=== PATIENT | male | born 1950 | race African-American/Black ===

== ENCOUNTER 2016-10-11 20:06 | Inpatient (IN) | payer OTHER ==
[~2016-10-11] VITALS: Ht 182.9 cm; Wt 60.8 kg
[2016-10-11 20:06] VITALS: BP_SYST 118
[~2016-10-11 20:06] MED LIST: ACET325T53 PO; ACYC400T PO; AZIT250T PO; FAMO20TA8 PO; FINA5TAB3 PO; FOLI-43 PO; INSU100V26 SUBCUT; INSU100V9 SUBCUT; IPRA4AER INH; METO-290 PO; METO25TA3 PO; MYCO180T3 PO; PRED10TA PO; PSYL3.4P6 PO; SULF1TAB48 PO; TACR0.5C PO; TACR1CAP PO; TAMS-11 PO; TIOT18CA3 IH; VANC125C10 PO; VITD2000 PO
[2016-10-11 21:14] LABS: HEMOGLOBIN 13.4 g/dL (14.0-18.0); MEAN CORPUSCULAR HGB CONC 33 % (32-36)
[2016-10-11] MEDS ORDERED: ACLI400A2 IH (21:15)
[2016-10-11] MEDS ORDERED: MORPHINE 2 MG/ML INJ. SYRINGE IVP ONE (21:15)
[2016-10-11] MEDS ORDERED: IPRATROPIUM/ALBUTEROL SULFATE 3 ML AMPUL.NEB INH ONE (21:15)
[2016-10-11] MEDS ORDERED: METR500T PO (21:16)
[2016-10-11] MEDS ORDERED: TAMS-11 PO (21:18)
[2016-10-11] MEDS ORDERED: INSU100V11 SQ (21:20)
[2016-10-11] MEDS ORDERED: IPRA3AMP9 INH ×2 (21:22→21:23)
[2016-10-11 21:24] LABS: BASOPHILS # (AUTO) 0.3 K/uL (0.0-0.2); BASOPHILS % (AUTO) 2.8 % (0.0-2.0); HEMATOCRIT 40.9 % (36-54); LYMPHOCYTES # (AUTO) 0.3 K/uL (1.0-5.5); LYMPHOCYTES % (AUTO) 2.7 % (20.5-51.5); MEAN CORPUSCULAR HEMOGLOBIN 31 pg (27-31); MEAN CORPUSCULAR VOLUME 96 fL (79.0-98.0); MONOCYTES # (AUTO) 0.3 K/uL (0.0-1.0); MONOCYTES % (AUTO) 2.7 % (1.7-9.3); NEUTROPHILS # (AUTO) 8.8 K/uL (1.8-7.7); NEUTROPHILS % (AUTO) 91.8 % (40.0-70.0); RED BLOOD CELL COUNT(AUTO) 4.29 MIL/uL (4.2-6.2); WHITE BLOOD COUNT (AUTO) 9.7 K/uL (4.8-10.8)
[2016-10-11] MEDS ORDERED: MAG-55 PO (21:25)
[2016-10-11] MEDS ORDERED: PRED50TA PO (21:26)
[2016-10-11] MEDS ORDERED: TRAM50TA92 PO (21:28)
[2016-10-11 21:29] LABS: CALCIUM 8.8 mg/dL (8.4-11.0); CHLORIDE 104 mmol/L (98-107); CREATININE 1.84 mg/dL (0.55-1.30); GLUCOSE 205 mg/dL (70-99); POTASSIUM 5.6 mmol/L (3.5-5.1); SODIUM SERUM 136 mmol/L (136-145); UREA NITROGEN, BLOOD 61 mg/dL (8-21)
[2016-10-11 21:34] LABS: ANION GAP < 3 (5-15); GFR AFRICAN AMERICAN 48 mL/min (>90)
[2016-10-11] MEDS ORDERED: INSULIN REGULAR, HUMAN 10 UNITS/0.1 ML INJ IVP ONE (21:45)
[2016-10-11] MEDS ORDERED: NACL 0.9% 1,000 ML IV ONE (21:45)
[2016-10-11] MEDS ORDERED: SODIUM POLYSTYRENE SULFONATE 15 GM/60 ML UDBTL PO ONE (21:45)
[2016-10-11] MEDS ORDERED: DEXTROSE 50% JECT 50 ML DISP.SYRIN IVP ONE (21:45)
[2016-10-11 21:53] LABS: BILIRUBIN,URINE NEGATIVE (NEGATIVE); CLARITY/URINE SL HAZY (CLEAR); COLOR,URINE AMBER (YELLOW); GLUCOSE,URINE NEGATIVE (NEGATIVE); KETONES,URINE NEGATIVE (NEGATIVE); LEUKOCYTE ESTERASE ,URINE TRACE (NEGATIVE); NITRITE, URINE NEGATIVE (NEGATIVE); PROTEIN URINE 1+ (NEGATIVE); UROBILINOGEN,URINE 0.2 (0.2-1.0)
[2016-10-11 21:53] LABS: ALANINE AMINOTRANSFERASE 56 U/L (12-78); ALBUMIN 2.4 g/dL (3.4-4.8); AMYLASE 55 U/L (0-100); ASPARTATE AMINOTRANSFERASE 36 U/L (10-37); LIPASE 57 U/L (73-393); TOTAL BILIRUBIN 0.6 mg/dL (0.0-1.0); TOTAL PROTEIN, SERUM 6.1 g/dL (6.4-8.3)
[2016-10-11 22:06] LABS: BLOOD, URINE TRACE (NEGATIVE)
[2016-10-11 22:17] LABS: RBC,URINE 0-3 /HPF (0-3)
[2016-10-11 22:18] LABS: BACTERIA,URINE FEW /HPF (None Seen)
[2016-10-11 22:19] LABS: MUCUS,URINE 1+ /LPF (None Seen)
[2016-10-11 22:20] LABS: FINE GRANULAR CASTS,URINE 0-10 /LPF (None Seen)
[2016-10-11] MEDS ORDERED: PIPERACILLIN/TAZO 3.375 GM in NS 50 ML IV ONE (22:30)
[2016-10-11] MEDS ORDERED: VANCOMYCIN HCL 1,000 MG in NS 250 ML IV ONE (22:30)
[2016-10-11 22:40] LABS: PLATELET COUNT (AUTO) 91 K/uL (130-430)
[2016-10-11] MEDS ORDERED: VANCOMYCIN HCL 1000 MG/VIAL IV ONE (22:48)
[2016-10-11] MEDS ORDERED: PIPERACILLIN/TAZOBACTAM 3.375 GM/VIAL (ZOSYN) IV ONE (22:48)
[2016-10-12] VITALS (7 sets, daily range): BP systolic 145–153
[2016-10-12 00:20] LABS: INR 1.1 (0.80-1.20); PROTHROMBIN TIME 12.1 SECS (9.5-12.5)
[2016-10-12] MEDS ORDERED: NACL 0.9% 1,000 ML IV ONE (01:30)
[2016-10-12] MEDS ORDERED: ACETAMINOPHEN 325 MG TABLET PO PRN (01:45)
[2016-10-12] MEDS ORDERED: D5/0.45 NS 1,000 ML IV SCH (01:45)
[2016-10-12] MEDS ORDERED: PIPERACILLIN/TAZOBACTAM 2.25 GM VIAL IV ONE (05:30)
[2016-10-12] MEDS: PIPERACILLIN/TAZOBACTAM 2.25 GM in NS 50 ML IV SCH ×4 (05:51→23:53)
[2016-10-12 06:36] LABS: HEMATOCRIT 40.3 % (36-54); HEMOGLOBIN 13.4 g/dL (14.0-18.0); MEAN CORPUSCULAR HEMOGLOBIN 32 pg (27-31); MEAN CORPUSCULAR HGB CONC 33 % (32-36); MEAN CORPUSCULAR VOLUME 97 fL (79.0-98.0); PLATELET COUNT (AUTO) 85 K/uL (130-430); RED BLOOD CELL COUNT(AUTO) 4.14 MIL/uL (4.2-6.2); RED CELL DISTRIBUTION WIDTH 16.9 % (9.0-15.0); WHITE BLOOD COUNT (AUTO) 8.8 K/uL (4.8-10.8)
[2016-10-12 07:02] LABS: ALBUMIN 2.3 g/dL (3.4-4.8); CALCIUM 8.2 mg/dL (8.4-11.0); CREATININE 1.62 mg/dL (0.55-1.30); POTASSIUM 5.2 mmol/L (3.5-5.1); TOTAL BILIRUBIN 0.6 mg/dL (0.0-1.0)
[2016-10-12] MEDS: LevALBUTEROL HCL 1.25 MG/0.5 ML *CONC.* VIAL.NEB (XOPENEX CONC.) INH SCH ×3 (07:13→19:47)
[2016-10-12 07:35] LABS: BAND % (MANUAL) 4 % (0-6)
[2016-10-12 07:36] LABS: ATYPICAL LYMPHOCYTES % 0 % (0-0); BASOPHILS % (MANUAL) 0 % (0-2); EOSINOPHILS % (MANUAL) 0 % (0-7); LYMPHOCYTES % (MANUAL) 9 % (20-46); MONOCYTES % (MANUAL) 5 % (0-11)
[2016-10-12] MEDS: metroNIDAZOLE 500 MG TABLET PO SCH ×3 (08:37→21:19)
[2016-10-12] MEDS: METOPROLOL SUCCINATE 25 MG TAB.SR.24H (TOPROL XL) PO SCH (08:37)
[2016-10-12] MEDS: TAMSULOSIN HCL 0.4 MG CAP PO SCH (08:38)
[2016-10-12] MEDS: TACROLIMUS ANHYDROUS 1 MG CAPSULE (PROGRAF) PO SCH (08:38)
[2016-10-12] MEDS: FINASTERIDE 5 MG TABLET (PROSCAR) PO SCH (08:38)
[2016-10-12] MEDS: FAMOTIDINE 20 MG TABLET PO SCH ×2 (08:38→21:19)
[2016-10-12] MEDS ORDERED: ACLIDINIUM BROMIDE IH SCH (09:00)
[2016-10-12] MEDS ORDERED: PREDNISONE 10 MG TABLET PO SCH (09:00)
[2016-10-12] MEDS: INSULIN REGULAR, HUMAN 100 UNITS/ML, 10 ML VIAL (novoLIN R) SUBCUT PRN ×3 (12:28→21:30)
[2016-10-12] MEDS ORDERED: FUROSEMIDE 20 MG/2 ML VIAL IVP ONE (13:30)
[2016-10-12 13:48] LABS: ABG TOTAL HEMOGLOBIN 14.4 G/dL (12.0-18.0); BLOOD GAS BASE EXCESS 3.2 mmol/L (-3.0-3.0); BLOOD GAS COHb% 0.7 % (0.5-1.5); BLOOD GAS HHB 3.1 % (0.0-6.0); BLOOD GAS PH 7.414 (7.350-7.450); BLOOD O2Hb% 95.6 % (94.0-97.0)
[2016-10-12] MEDS: methylPREDNISolone SOD SUCC/PF 62.5 MG/ML VIAL IVP SCH ×2 (14:38→21:20)
[2016-10-12] MEDS: FLUCONAZOLE 200 mg/ NS 100 ML IV SCH (14:39)
[2016-10-12] MEDS: IPRATROPIUM BROM 0.5 MG/2.5 ML VIAL.NEB (ATROVENT) INH SCH (19:47)
[2016-10-12] MEDS: TACROLIMUS ANHYDROUS 0.5 MG CAPSULE (PROGRAF) PO SCH (21:19)
[2016-10-12] MEDS: VANCOMYCIN HCL 1,250 MG in NS 250 ML IV SCH (21:25)
[2016-10-13 00:14] VITALS: BP_SYST 143
[2016-10-13] MEDS: LevALBUTEROL HCL 1.25 MG/0.5 ML *CONC.* VIAL.NEB (XOPENEX CONC.) INH SCH ×4 (01:28→19:38)
[2016-10-13] MEDS: IPRATROPIUM BROM 0.5 MG/2.5 ML VIAL.NEB (ATROVENT) INH SCH ×4 (01:28→19:38)
[2016-10-13 04:45] VITALS: BP_SYST 148
[2016-10-13] MEDS: methylPREDNISolone SOD SUCC/PF 62.5 MG/ML VIAL IVP SCH ×3 (05:49→22:50)
[2016-10-13] MEDS: PIPERACILLIN/TAZOBACTAM 2.25 GM in NS 50 ML IV SCH ×3 (05:49→17:52)
[2016-10-13 06:43] LABS: HEMOGLOBIN 12.9 g/dL (14.0-18.0); MEAN CORPUSCULAR HEMOGLOBIN 33 pg (27-31); MONOCYTES # (AUTO) 0.2 K/uL (0.0-1.0)
[2016-10-13 06:48] LABS: BASOPHILS % (AUTO) 0.1 % (0.0-2.0); HEMATOCRIT 37.9 % (36-54); LYMPHOCYTES # (AUTO) 0.1 K/uL (1.0-5.5); LYMPHOCYTES % (AUTO) 1.5 % (20.5-51.5); MEAN CORPUSCULAR HGB CONC 34 % (32-36); MEAN CORPUSCULAR VOLUME 96 fL (79.0-98.0); MONOCYTES % (AUTO) 1.8 % (1.7-9.3); NEUTROPHILS # (AUTO) 8.4 K/uL (1.8-7.7); NEUTROPHILS % (AUTO) 96.6 % (40.0-70.0); RED BLOOD CELL COUNT(AUTO) 3.97 MIL/uL (4.2-6.2); RED CELL DISTRIBUTION WIDTH 16.7 % (9.0-15.0); WHITE BLOOD COUNT (AUTO) 8.7 K/uL (4.8-10.8)
[2016-10-13 07:04] LABS: CALCIUM 8.3 mg/dL (8.4-11.0); CREATININE 1.69 mg/dL (0.55-1.30); POTASSIUM 5.2 mmol/L (3.5-5.1)
[2016-10-13 08:14] VITALS: BP_SYST 138
[2016-10-13] MEDS: TAMSULOSIN HCL 0.4 MG CAP PO SCH (08:52)
[2016-10-13] MEDS: FAMOTIDINE 20 MG TABLET PO SCH ×2 (08:52→20:22)
[2016-10-13] MEDS: metroNIDAZOLE 500 MG TABLET PO SCH ×3 (08:52→20:22)
[2016-10-13] MEDS: METOPROLOL SUCCINATE 25 MG TAB.SR.24H (TOPROL XL) PO SCH (08:53)
[2016-10-13] MEDS: FINASTERIDE 5 MG TABLET (PROSCAR) PO SCH (08:53)
[2016-10-13] MEDS: TACROLIMUS ANHYDROUS 1 MG CAPSULE (PROGRAF) PO SCH (08:53)
[2016-10-13 09:13] LABS: PLATELET COUNT (AUTO) 72 K/uL (130-430)
[2016-10-13] MEDS ORDERED: FUROSEMIDE 20 MG/2 ML VIAL IVP ONE (11:30)
[2016-10-13 12:00] VITALS: BP_SYST 127
[2016-10-13] MEDS: INSULIN REGULAR, HUMAN 100 UNITS/ML, 10 ML VIAL (novoLIN R) SUBCUT PRN ×3 (12:14→20:27)
[2016-10-13] MEDS: FLUCONAZOLE 200 mg/ NS 100 ML IV SCH (13:15)
[2016-10-13 16:00] VITALS: BP_SYST 136
[2016-10-13] MEDS: VANCOMYCIN HCL 1,250 MG in NS 250 ML IV SCH (20:22)
[2016-10-13] MEDS: TACROLIMUS ANHYDROUS 0.5 MG CAPSULE (PROGRAF) PO SCH (20:22)
[2016-10-13 20:28] VITALS: BP_SYST 135
[2016-10-14 00:04] VITALS: BP_SYST 133
[2016-10-14] MEDS: PIPERACILLIN/TAZOBACTAM 2.25 GM in NS 50 ML IV SCH ×4 (00:16→17:01)
[2016-10-14] MEDS: IPRATROPIUM BROM 0.5 MG/2.5 ML VIAL.NEB (ATROVENT) INH SCH ×4 (01:56→20:30)
[2016-10-14] MEDS: LevALBUTEROL HCL 1.25 MG/0.5 ML *CONC.* VIAL.NEB (XOPENEX CONC.) INH SCH ×4 (01:56→20:30)
[2016-10-14 04:12] VITALS: BP_SYST 125
[2016-10-14] MEDS: methylPREDNISolone SOD SUCC/PF 62.5 MG/ML VIAL IVP SCH ×3 (05:59→21:10)
[2016-10-14 07:41] LABS: BASOPHILS % (AUTO) 0.4 % (0.0-2.0); EOSINOPHILS % (AUTO) 0.1 % (0.0-4.0); HEMATOCRIT 40.4 % (36-54); HEMOGLOBIN 13.4 g/dL (14.0-18.0); LYMPHOCYTES # (AUTO) 0.2 K/uL (1.0-5.5); LYMPHOCYTES % (AUTO) 1.5 % (20.5-51.5); MEAN CORPUSCULAR HEMOGLOBIN 32 pg (27-31); MEAN CORPUSCULAR HGB CONC 33 % (32-36); MEAN CORPUSCULAR VOLUME 97 fL (79.0-98.0); MONOCYTES # (AUTO) 0.3 K/uL (0.0-1.0); MONOCYTES % (AUTO) 2.4 % (1.7-9.3); NEUTROPHILS % (AUTO) 95.6 % (40.0-70.0); PLATELET COUNT (AUTO) 60 K/uL (130-430); RED BLOOD CELL COUNT(AUTO) 4.17 MIL/uL (4.2-6.2); RED CELL DISTRIBUTION WIDTH 17.2 % (9.0-15.0); WHITE BLOOD COUNT (AUTO) 10.5 K/uL (4.8-10.8)
[2016-10-14 08:04] VITALS: BP_SYST 147
[2016-10-14 08:34] LABS: CALCIUM 8.1 mg/dL (8.4-11.0); CREATININE 1.93 mg/dL (0.55-1.30); POTASSIUM 4.5 mmol/L (3.5-5.1)
[2016-10-14] MEDS: METOPROLOL SUCCINATE 25 MG TAB.SR.24H (TOPROL XL) PO SCH (09:10)
[2016-10-14] MEDS: TAMSULOSIN HCL 0.4 MG CAP PO SCH (09:10)
[2016-10-14] MEDS: FINASTERIDE 5 MG TABLET (PROSCAR) PO SCH (09:10)
[2016-10-14] MEDS: FAMOTIDINE 20 MG TABLET PO SCH ×2 (09:11→21:10)
[2016-10-14] MEDS: metroNIDAZOLE 500 MG TABLET PO SCH ×3 (09:11→21:10)
[2016-10-14] MEDS: TACROLIMUS ANHYDROUS 1 MG CAPSULE (PROGRAF) PO SCH (09:11)
[2016-10-14] MEDS ORDERED: MIDAZOLAM HCL 5 MG/5 ML VIAL ONE (12:14)
[2016-10-14] MEDS: MIDAZOLAM HCL 5 MG/5 ML VIAL ONE ×2 (12:14→14:38)
[2016-10-14] MEDS ORDERED: fentaNYL CITRATE/PF 100 MCG/2 ML AMP ONE (12:15)
[2016-10-14] MEDS ORDERED: LIDOCAINE 2% JELLY UROJECT 10 ML MM ONE (12:17)
[2016-10-14 12:19] VITALS: BP_SYST 127
[2016-10-14] MEDS ORDERED: LIDOCAINE 1%, 20 ML MDV 60 ML ONE (12:19)
[2016-10-14] MEDS: FLUCONAZOLE 200 mg/ NS 100 ML IV SCH (13:12)
[2016-10-14 16:20] VITALS: BP_SYST 140
[2016-10-14] MEDS: FUROSEMIDE 20 MG/2 ML VIAL IVP SCH (17:01)
[2016-10-14 19:08] LABS: TACROLIMUS (FK506) 4.9 ng/mL (2.0-20.0)
[2016-10-14 20:00] VITALS: BP_SYST 144
[2016-10-14] MEDS: VANCOMYCIN HCL 1,250 MG in NS 250 ML IV SCH (21:09)
[2016-10-14] MEDS: TACROLIMUS ANHYDROUS 0.5 MG CAPSULE (PROGRAF) PO SCH (21:18)
[2016-10-14] MEDS: INSULIN REGULAR, HUMAN 100 UNITS/ML, 10 ML VIAL (novoLIN R) SUBCUT PRN (22:14)
[2016-10-15] VITALS (7 sets, daily range): BP systolic 107–136
[2016-10-15] MEDS: PIPERACILLIN/TAZOBACTAM 2.25 GM in NS 50 ML IV SCH ×4 (00:43→17:15)
[2016-10-15] MEDS: LevALBUTEROL HCL 1.25 MG/0.5 ML *CONC.* VIAL.NEB (XOPENEX CONC.) INH SCH ×4 (01:31→21:32)
[2016-10-15] MEDS: IPRATROPIUM BROM 0.5 MG/2.5 ML VIAL.NEB (ATROVENT) INH SCH ×4 (01:31→21:31)
[2016-10-15] MEDS: methylPREDNISolone SOD SUCC/PF 62.5 MG/ML VIAL IVP SCH ×3 (05:40→21:30)
[2016-10-15] MEDS: INSULIN REGULAR, HUMAN 100 UNITS/ML, 10 ML VIAL (novoLIN R) SUBCUT PRN ×3 (06:33→16:51)
[2016-10-15 07:02] LABS: BASOPHILS # (AUTO) 0.1 K/uL (0.0-0.2); BASOPHILS % (AUTO) 1.6 % (0.0-2.0); EOSINOPHILS % (AUTO) 0.1 % (0.0-4.0); HEMATOCRIT 38.7 % (36-54); LYMPHOCYTES # (AUTO) 0.1 K/uL (1.0-5.5); LYMPHOCYTES % (AUTO) 1.5 % (20.5-51.5); MEAN CORPUSCULAR HEMOGLOBIN 32 pg (27-31); MEAN CORPUSCULAR HGB CONC 34 % (32-36); MEAN CORPUSCULAR VOLUME 96 fL (79.0-98.0); MONOCYTES # (AUTO) 0.2 K/uL (0.0-1.0); MONOCYTES % (AUTO) 1.9 % (1.7-9.3); NEUTROPHILS # (AUTO) 8.2 K/uL (1.8-7.7); NEUTROPHILS % (AUTO) 94.9 % (40.0-70.0); PLATELET COUNT (AUTO) 57 K/uL (130-430); RED BLOOD CELL COUNT(AUTO) 4.02 MIL/uL (4.2-6.2); WHITE BLOOD COUNT (AUTO) 8.6 K/uL (4.8-10.8)
[2016-10-15 07:11] LABS: CALCIUM 9.9 mg/dL (8.4-11.0); CREATININE 2.17 mg/dL (0.55-1.30); POTASSIUM 4.4 mmol/L (3.5-5.1)
[2016-10-15] MEDS: TAMSULOSIN HCL 0.4 MG CAP PO SCH (08:54)
[2016-10-15] MEDS: FINASTERIDE 5 MG TABLET (PROSCAR) PO SCH (08:54)
[2016-10-15] MEDS: FAMOTIDINE 20 MG TABLET PO SCH ×2 (08:54→21:31)
[2016-10-15] MEDS: metroNIDAZOLE 500 MG TABLET PO SCH ×3 (08:54→21:31)
[2016-10-15] MEDS: METOPROLOL SUCCINATE 25 MG TAB.SR.24H (TOPROL XL) PO SCH (08:55)
[2016-10-15] MEDS: TACROLIMUS ANHYDROUS 1 MG CAPSULE (PROGRAF) PO SCH (08:55)
[2016-10-15] MEDS: FUROSEMIDE 20 MG/2 ML VIAL IVP SCH (08:56)
[2016-10-15] MEDS ORDERED: FUROSEMIDE 20 MG/2 ML VIAL IVP SCH (09:00)
[2016-10-15] MEDS: LevALBUTEROL HCL 1.25 MG/0.5 ML *CONC.* VIAL.NEB (XOPENEX CONC.) INH PRN (11:47)
[2016-10-15] MEDS: FLUCONAZOLE 200 mg/ NS 100 ML IV SCH (14:29)
[2016-10-15] MEDS: VANCOMYCIN HCL 1,250 MG in NS 250 ML IV SCH (21:31)
[2016-10-15] MEDS: TACROLIMUS ANHYDROUS 0.5 MG CAPSULE (PROGRAF) PO SCH (21:32)
[2016-10-16] VITALS (18 sets, daily range): BP systolic 102–136
[2016-10-16] MEDS: IPRATROPIUM BROM 0.5 MG/2.5 ML VIAL.NEB (ATROVENT) INH SCH ×4 (00:46→19:50)
[2016-10-16] MEDS: LevALBUTEROL HCL 1.25 MG/0.5 ML *CONC.* VIAL.NEB (XOPENEX CONC.) INH SCH ×4 (00:46→19:50)
[2016-10-16] MEDS: PIPERACILLIN/TAZOBACTAM 2.25 GM in NS 50 ML IV SCH ×3 (00:57→11:54)
[2016-10-16] MEDS: LevALBUTEROL HCL 1.25 MG/0.5 ML *CONC.* VIAL.NEB (XOPENEX CONC.) INH PRN (06:00)
[2016-10-16] MEDS: INSULIN REGULAR, HUMAN 100 UNITS/ML, 10 ML VIAL (novoLIN R) SUBCUT PRN ×2 (06:03→12:09)
[2016-10-16] MEDS ORDERED: DIGOXIN 0.125 MG TABLET PO ONE (06:45)
[2016-10-16] MEDS ORDERED: METOPROLOL TARTRATE 25 MG TABLET PO ONE (06:45)
[2016-10-16] MEDS ORDERED: DIGOXIN 0.125 MG TABLET ONE (07:08)
[2016-10-16] MEDS ORDERED: METOPROLOL TARTRATE 25 MG TABLET ONE (07:09)
[2016-10-16 07:14] LABS: CALCIUM 8.2 mg/dL (8.4-11.0); CREATININE 2.12 mg/dL (0.55-1.30); POTASSIUM 4.3 mmol/L (3.5-5.1)
[2016-10-16] MEDS: METOPROLOL SUCCINATE 25 MG TAB.SR.24H (TOPROL XL) PO SCH ×3 (07:35→20:34)
[2016-10-16 07:36] LABS: BASOPHILS % (AUTO) 0.2 % (0.0-2.0); HEMATOCRIT 38.2 % (36-54); HEMOGLOBIN 12.4 g/dL (14.0-18.0); LYMPHOCYTES # (AUTO) 0.1 K/uL (1.0-5.5); MEAN CORPUSCULAR HEMOGLOBIN 32 pg (27-31); MEAN CORPUSCULAR HGB CONC 33 % (32-36); MEAN CORPUSCULAR VOLUME 97 fL (79.0-98.0); MONOCYTES # (AUTO) 0.1 K/uL (0.0-1.0); MONOCYTES % (AUTO) 1.4 % (1.7-9.3); NEUTROPHILS # (AUTO) 8.4 K/uL (1.8-7.7); RED BLOOD CELL COUNT(AUTO) 3.94 MIL/uL (4.2-6.2); RED CELL DISTRIBUTION WIDTH 17.3 % (9.0-15.0); WHITE BLOOD COUNT (AUTO) 8.6 K/uL (4.8-10.8)
[2016-10-16] MEDS ORDERED: METOPROLOL TARTRATE 5 MG/5 ML VIAL IVP ONE (08:15)
[2016-10-16] MEDS: FINASTERIDE 5 MG TABLET (PROSCAR) PO SCH (08:58)
[2016-10-16] MEDS: metroNIDAZOLE 500 MG TABLET PO SCH ×3 (08:58→20:35)
[2016-10-16] MEDS: methylPREDNISolone SOD SUCC/PF 62.5 MG/ML VIAL IVP SCH ×2 (08:58→20:36)
[2016-10-16] MEDS: FAMOTIDINE 20 MG TABLET PO SCH ×2 (08:58→20:35)
[2016-10-16] MEDS: TACROLIMUS ANHYDROUS 1 MG CAPSULE (PROGRAF) PO SCH (08:59)
[2016-10-16] MEDS: TAMSULOSIN HCL 0.4 MG CAP PO SCH (09:00)
[2016-10-16 09:43] LABS: PLATELET COUNT (AUTO) 38 K/uL (130-430)
[2016-10-16 09:44] LABS: NEUTROPHILS % (AUTO) 97.4 % (40.0-70.0)
[2016-10-16] MEDS ORDERED: COMMUNICATION ORDER XX ONE (10:00)
[2016-10-16 10:27] LABS: ABG TOTAL HEMOGLOBIN 13.3 G/dL (12.0-18.0); BLOOD GAS BASE EXCESS 4.6 mmol/L (-3.0-3.0); BLOOD GAS COHb% 0.2 % (0.5-1.5); BLOOD GAS HHB 3.5 % (0.0-6.0); BLOOD GAS PH 7.418 (7.350-7.450); BLOOD O2Hb% 95.7 % (94.0-97.0)
[2016-10-16] MEDS ORDERED: TOBRAMYCIN 300MG/5ML INH AMPUL.NEB INH ONE (11:00)
[2016-10-16 12:05] LABS: INR 1.3 (0.80-1.20); PROTHROMBIN TIME 14.6 SECS (9.5-12.5)
[2016-10-16] MEDS: FLUCONAZOLE 200 mg/ NS 100 ML IV SCH (18:05)
[2016-10-16] MEDS: TOBRAMYCIN 300MG/5ML INH AMPUL.NEB INH SCH (20:25)
[2016-10-16] MEDS: TACROLIMUS ANHYDROUS 0.5 MG CAPSULE (PROGRAF) PO SCH (20:33)
[2016-10-16] MEDS: VANCOMYCIN HCL 1,250 MG in NS 250 ML IV SCH ×2 (20:35→21:00)
[2016-10-16] MEDS ORDERED: HALOPERIDOL LACTATE 5 MG/ML VIAL IVP ONE (21:15)
[2016-10-16] MEDS ORDERED: D5W 1,000 ML IV PRN (22:18)
[2016-10-16] MEDS ORDERED: GLUCOSE 15 GM GEL (in 37.5 GM TUBE) PO PRN ×2 (22:30)
[2016-10-16] MEDS ORDERED: DEXTROSE 50% JECT 50 ML DISP.SYRIN IVP PRN ×2 (22:30)
[2016-10-17] VITALS (24 sets, daily range): BP systolic 102–138
[2016-10-17] MEDS: LevALBUTEROL HCL 1.25 MG/0.5 ML *CONC.* VIAL.NEB (XOPENEX CONC.) INH SCH ×4 (00:46→20:08)
[2016-10-17] MEDS: IPRATROPIUM BROM 0.5 MG/2.5 ML VIAL.NEB (ATROVENT) INH SCH ×4 (00:47→20:09)
[2016-10-17 06:07] LABS: BASOPHILS % (AUTO) 0.2 % (0.0-2.0); HEMATOCRIT 36.7 % (36-54); HEMOGLOBIN 12.3 g/dL (14.0-18.0); LYMPHOCYTES # (AUTO) 0.1 K/uL (1.0-5.5); LYMPHOCYTES % (AUTO) 1.4 % (20.5-51.5); MEAN CORPUSCULAR HEMOGLOBIN 32 pg (27-31); MEAN CORPUSCULAR HGB CONC 33 % (32-36); MEAN CORPUSCULAR VOLUME 96 fL (79.0-98.0); MONOCYTES # (AUTO) 0.1 K/uL (0.0-1.0); MONOCYTES % (AUTO) 1.7 % (1.7-9.3); NEUTROPHILS # (AUTO) 7.5 K/uL (1.8-7.7); NEUTROPHILS % (AUTO) 96.7 % (40.0-70.0); RED BLOOD CELL COUNT(AUTO) 3.83 MIL/uL (4.2-6.2); RED CELL DISTRIBUTION WIDTH 17.6 % (9.0-15.0); WHITE BLOOD COUNT (AUTO) 7.7 K/uL (4.8-10.8)
[2016-10-17 06:30] LABS: INR 1.4 (0.80-1.20); PROTHROMBIN TIME 14.8 SECS (9.5-12.5)
[2016-10-17 06:31] LABS: ALANINE AMINOTRANSFERASE 54 U/L (12-78); ALBUMIN 1.9 g/dL (3.4-4.8); ASPARTATE AMINOTRANSFERASE 45 U/L (10-37); CALCIUM 8.3 mg/dL (8.4-11.0); CHLORIDE 108 mmol/L (98-107); CREATININE 2.42 mg/dL (0.55-1.30); GLUCOSE 171 mg/dL (70-99); PLATELET COUNT (AUTO) 45 K/uL (130-430); POTASSIUM 4.5 mmol/L (3.5-5.1); SODIUM SERUM 143 mmol/L (136-145); TOTAL BILIRUBIN 0.8 mg/dL (0.0-1.0); UREA NITROGEN, BLOOD 90 mg/dL (8-21)
[2016-10-17 06:34] LABS: GFR AFRICAN AMERICAN 35 mL/min (>90)
[2016-10-17 06:35] LABS: ANION GAP < 3 (5-15)
[2016-10-17] MEDS: metroNIDAZOLE 500 MG TABLET PO SCH ×3 (08:23→21:26)
[2016-10-17] MEDS: METOPROLOL SUCCINATE 25 MG TAB.SR.24H (TOPROL XL) PO SCH ×2 (08:23→21:26)
[2016-10-17] MEDS: methylPREDNISolone SOD SUCC/PF 62.5 MG/ML VIAL IVP SCH ×2 (08:24→21:26)
[2016-10-17] MEDS: TAMSULOSIN HCL 0.4 MG CAP PO SCH (08:24)
[2016-10-17] MEDS: FINASTERIDE 5 MG TABLET (PROSCAR) PO SCH (08:24)
[2016-10-17] MEDS: FAMOTIDINE 20 MG TABLET PO SCH ×2 (08:24→21:26)
[2016-10-17] MEDS: TACROLIMUS ANHYDROUS 1 MG CAPSULE (PROGRAF) PO SCH (08:24)
[2016-10-17 09:15] LABS: ABG TOTAL HEMOGLOBIN 13.2 G/dL (12.0-18.0); BLOOD GAS BASE EXCESS 3.7 mmol/L (-3.0-3.0); BLOOD GAS COHb% 0.4 % (0.5-1.5); BLOOD GAS HHB 4.7 % (0.0-6.0); BLOOD GAS PH 7.411 (7.350-7.450); BLOOD O2Hb% 94.7 % (94.0-97.0)
[2016-10-17] MEDS: VANCOMYCIN HCL 750 MG in NS 250 ML IV SCH (09:26)
[2016-10-17] MEDS ORDERED: COMMUNICATION ORDER XX ONE (10:15)
[2016-10-17] MEDS ORDERED: MEROPENEM 500 MG in NS 50 ML IV ONE (11:00)
[2016-10-17] MEDS: INSULIN REGULAR, HUMAN 100 UNITS/ML, 10 ML VIAL (novoLIN R) SUBCUT PRN ×3 (12:01→21:44)
[2016-10-17 12:21] LABS: ASPERGILLUS FLAVUS Negative (Neg:<1:1); ASPERGILLUS FUMIGATUS Negative (Neg:<1:1)
[2016-10-17] MEDS ORDERED: LIDOCAINE VISCOUS 2%, 15 ML UDC MM PRN (13:00)
[2016-10-17] MEDS: TOBRAMYCIN 300MG/5ML INH AMPUL.NEB INH SCH ×2 (13:24→20:27)
[2016-10-17] MEDS: FLUCONAZOLE 200 mg/ NS 100 ML IV SCH (14:44)
[2016-10-17] MEDS: NYSTATIN 500,000 UNITS/5 ML UDC PO SCH ×2 (18:02→23:21)
[2016-10-17] MEDS: MEROPENEM 500 MG in NS 50 ML IV SCH (20:45)
[2016-10-17] MEDS: TACROLIMUS ANHYDROUS 0.5 MG CAPSULE (PROGRAF) PO SCH (21:27)
[2016-10-17] MEDS: NACL 0.9% 1,000 ML IV SCH (23:09)
[2016-10-18] VITALS (25 sets, daily range): BP systolic 96–149
[2016-10-18] MEDS: LevALBUTEROL HCL 1.25 MG/0.5 ML *CONC.* VIAL.NEB (XOPENEX CONC.) INH SCH ×3 (01:06→19:48)
[2016-10-18] MEDS: IPRATROPIUM BROM 0.5 MG/2.5 ML VIAL.NEB (ATROVENT) INH SCH ×3 (01:07→19:47)
[2016-10-18 06:24] LABS: BASOPHILS # (AUTO) 0.1 K/uL (0.0-0.2); EOSINOPHILS % (AUTO) 0.1 % (0.0-4.0); LYMPHOCYTES # (AUTO) 0.1 K/uL (1.0-5.5)
[2016-10-18] MEDS: NYSTATIN 500,000 UNITS/5 ML UDC PO SCH ×3 (06:36→17:57)
[2016-10-18 06:37] LABS: BASOPHILS % (AUTO) 0.8 % (0.0-2.0); HEMATOCRIT 38.6 % (36-54); HEMOGLOBIN 12.9 g/dL (14.0-18.0); LYMPHOCYTES % (AUTO) 1.2 % (20.5-51.5); MEAN CORPUSCULAR HEMOGLOBIN 32 pg (27-31); MEAN CORPUSCULAR HGB CONC 33 % (32-36); MEAN CORPUSCULAR VOLUME 96 fL (79.0-98.0); MONOCYTES # (AUTO) 0.2 K/uL (0.0-1.0); MONOCYTES % (AUTO) 2.1 % (1.7-9.3); NEUTROPHILS # (AUTO) 6.8 K/uL (1.8-7.7); NEUTROPHILS % (AUTO) 95.8 % (40.0-70.0); RED BLOOD CELL COUNT(AUTO) 4.01 MIL/uL (4.2-6.2); RED CELL DISTRIBUTION WIDTH 17.7 % (9.0-15.0); WHITE BLOOD COUNT (AUTO) 7.2 K/uL (4.8-10.8)
[2016-10-18 06:39] LABS: CALCIUM 8.6 mg/dL (8.4-11.0); CHLORIDE 109 mmol/L (98-107); CREATININE 3.12 mg/dL (0.55-1.30); GLUCOSE 250 mg/dL (70-99); POTASSIUM 4.5 mmol/L (3.5-5.1); SODIUM SERUM 144 mmol/L (136-145)
[2016-10-18] MEDS: INSULIN REGULAR, HUMAN 100 UNITS/ML, 10 ML VIAL (novoLIN R) SUBCUT PRN (06:39)
[2016-10-18 06:56] LABS: GFR AFRICAN AMERICAN 26 mL/min (>90)
[2016-10-18 06:57] LABS: ANION GAP < 3 (5-15)
[2016-10-18 06:58] LABS: UREA NITROGEN, BLOOD 111 mg/dL (8-21)
[2016-10-18 07:08] LABS: PLATELET COUNT (AUTO) 60 K/uL (130-430)
[2016-10-18] MEDS: TOBRAMYCIN 300MG/5ML INH AMPUL.NEB INH SCH ×2 (07:44→20:12)
[2016-10-18] MEDS: MEROPENEM 500 MG in NS 50 ML IV SCH ×2 (08:28→21:20)
[2016-10-18] MEDS: methylPREDNISolone SOD SUCC/PF 62.5 MG/ML VIAL IVP SCH ×2 (08:28→21:18)
[2016-10-18] MEDS: TAMSULOSIN HCL 0.4 MG CAP PO SCH (08:29)
[2016-10-18] MEDS: FAMOTIDINE 20 MG TABLET PO SCH ×2 (08:29→21:19)
[2016-10-18] MEDS: METOPROLOL SUCCINATE 25 MG TAB.SR.24H (TOPROL XL) PO SCH ×2 (08:29→21:19)
[2016-10-18] MEDS: metroNIDAZOLE 500 MG TABLET PO SCH ×2 (08:29→14:18)
[2016-10-18] MEDS: FINASTERIDE 5 MG TABLET (PROSCAR) PO SCH (08:30)
[2016-10-18] MEDS: TACROLIMUS ANHYDROUS 1 MG CAPSULE (PROGRAF) PO SCH (09:57)
[2016-10-18] MEDS: VANCOMYCIN HCL 750 MG in NS 250 ML IV SCH (09:57)
[2016-10-18] MEDS ORDERED: PHYTONADIONE 10 MG/ML AMP IM ONE (10:30)
[2016-10-18] MEDS ORDERED: HEPARIN SODIUM,PORCINE 5000 UNITS/ML VIAL SUBCUT ONE (13:15)
[2016-10-18] MEDS: FLUCONAZOLE 200 mg/ NS 100 ML IV SCH (14:18)
[2016-10-18] MEDS: NACL 0.9% 1,000 ML IV SCH ×2 (17:58→21:44)
[2016-10-18] MEDS ORDERED: NOREPINEPHRINE 4 MG/4 ML VIAL IV ONE (20:29)
[2016-10-18] MEDS ORDERED: NOREPINEPHRINE BITARTRATE 4 MG in D5W 246 ML IV PRN (20:30)
[2016-10-18] MEDS: TACROLIMUS ANHYDROUS 0.5 MG CAPSULE (PROGRAF) PO SCH (21:24)
[2016-10-19] VITALS (19 sets, daily range): BP systolic 71–133
[2016-10-19] MEDS: NYSTATIN 500,000 UNITS/5 ML UDC PO SCH ×4 (00:08→17:59)
[2016-10-19] MEDS: LevALBUTEROL HCL 1.25 MG/0.5 ML *CONC.* VIAL.NEB (XOPENEX CONC.) INH SCH ×3 (00:26→13:09)
[2016-10-19] MEDS: IPRATROPIUM BROM 0.5 MG/2.5 ML VIAL.NEB (ATROVENT) INH SCH ×3 (00:26→13:09)
[2016-10-19] MEDS: LORazepam 2 MG/ML VIAL IVP PRN ×4 (01:10→09:07)
[2016-10-19] MEDS ORDERED: LORazepam 2 MG/ML VIAL ONE (01:11)
[2016-10-19 06:39] LABS: INR 1.5 (0.80-1.20); PROTHROMBIN TIME 16.8 SECS (9.5-12.5)
[2016-10-19 06:46] LABS: ALBUMIN 1.8 g/dL (3.4-4.8); CALCIUM 8.1 mg/dL (8.4-11.0); CREATININE 3.1 mg/dL (0.55-1.30); POTASSIUM 5.2 mmol/L (3.5-5.1); TOTAL PROTEIN, SERUM 4.8 g/dL (6.4-8.3)
[2016-10-19 06:54] LABS: BASOPHILS % (AUTO) 0.1 % (0.0-2.0); EOSINOPHILS % (AUTO) 0.1 % (0.0-4.0); HEMATOCRIT 36.7 % (36-54); HEMOGLOBIN 12.3 g/dL (14.0-18.0); LYMPHOCYTES # (AUTO) 0.1 K/uL (1.0-5.5); LYMPHOCYTES % (AUTO) 1.4 % (20.5-51.5); MEAN CORPUSCULAR HEMOGLOBIN 33 pg (27-31); MEAN CORPUSCULAR HGB CONC 33 % (32-36); MEAN CORPUSCULAR VOLUME 98 fL (79.0-98.0); MONOCYTES # (AUTO) 0.3 K/uL (0.0-1.0); MONOCYTES % (AUTO) 4.1 % (1.7-9.3); NEUTROPHILS # (AUTO) 6.6 K/uL (1.8-7.7); NEUTROPHILS % (AUTO) 94.3 % (40.0-70.0); RED BLOOD CELL COUNT(AUTO) 3.76 MIL/uL (4.2-6.2); RED CELL DISTRIBUTION WIDTH 17.7 % (9.0-15.0)
[2016-10-19] MEDS: TOBRAMYCIN 300MG/5ML INH AMPUL.NEB INH SCH (07:16)
[2016-10-19] MEDS: METOPROLOL SUCCINATE 25 MG TAB.SR.24H (TOPROL XL) PO SCH (07:58)
[2016-10-19] MEDS: TAMSULOSIN HCL 0.4 MG CAP PO SCH (07:58)
[2016-10-19] MEDS: TACROLIMUS ANHYDROUS 1 MG CAPSULE (PROGRAF) PO SCH (07:58)
[2016-10-19] MEDS: FINASTERIDE 5 MG TABLET (PROSCAR) PO SCH (07:58)
[2016-10-19] MEDS: FAMOTIDINE 20 MG TABLET PO SCH (07:58)
[2016-10-19] MEDS: MEROPENEM 500 MG in NS 50 ML IV SCH (08:38)
[2016-10-19] MEDS: methylPREDNISolone SOD SUCC/PF 62.5 MG/ML VIAL IVP SCH (08:39)
[2016-10-19] MEDS: VANCOMYCIN HCL 750 MG in NS 250 ML IV SCH (08:39)
[2016-10-19 08:41] LABS: PLATELET COUNT (AUTO) 42 K/uL (130-430)
[2016-10-19] MEDS ORDERED: MORPHINE 2 MG/ML INJ. SYRINGE ONE (09:22)
[2016-10-19] MEDS ORDERED: MORPHINE I.V. DRIP 100 ML IV PRN (11:00)
[2016-10-19] MEDS ORDERED: MORPHINE PCA 50 mg/50 mL NS 50 ML IV PRN (11:30)
[2016-10-19] MEDS: INSULIN REGULAR, HUMAN 100 UNITS/ML, 10 ML VIAL (novoLIN R) SUBCUT PRN (12:06)
[2016-10-19] MEDS: NACL 0.9% 1,000 ML IV SCH (15:06)
== END 2016-10-19 19:00 | disposition expired | DRG 166 ==
LOC: SED 20:06 → STU 10-12 01:36 → SIC 10-16 10:00 → STU 10-19 18:33
PROVIDERS: ADMIT Family Medicine; ATTEND Family Medicine
PROC: 02HV33Z Insertion of Infusion Device into Superior Vena Cava, Percutaneous Approach (ICD-10-PCS; 2016-10-11)
PROC: B548ZZA Ultrasonography of Superior Vena Cava, Guidance (ICD-10-PCS; 2016-10-11)
PROC: 0B9F8ZX Drainage of Right Lower Lung Lobe, Via Natural or Artificial Opening Endoscopic, Diagnostic (ICD-10-PCS; principal; 2016-10-14 14:30)
PROC: 5A09457 Assistance with Respiratory Ventilation, 24-96 Consecutive Hours, Continuous Positive Airway Pressure (ICD-10-PCS; 2016-10-16)
PROC: 02HV33Z Insertion of Infusion Device into Superior Vena Cava, Percutaneous Approach (ICD-10-PCS; 2016-10-16)
PROC: B548ZZA Ultrasonography of Superior Vena Cava, Guidance (ICD-10-PCS; 2016-10-16)
PROC: 5A1D00Z (ICD-10-PCS; 2016-10-18)
PROC: 06HM33Z Insertion of Infusion Device into Right Femoral Vein, Percutaneous Approach (ICD-10-PCS; 2016-10-18)
DX: J44.0 Chronic obstructive pulmonary disease with (acute) lower respiratory infection (principal); J96.21 Acute and chronic respiratory failure with hypoxia; J15.5 Pneumonia due to Escherichia coli; I21.4 Non-ST elevation (NSTEMI) myocardial infarction; J90 Pleural effusion, not elsewhere classified; N18.4 Chronic kidney disease, stage 4 (severe); I48.92 Unspecified atrial flutter; N17.9 Acute kidney failure, unspecified; A04.7 Enterocolitis due to Clostridium difficile; B37.0 Candidal stomatitis; I47.1 Supraventricular tachycardia; R57.9 Shock, unspecified; Z94.2 Lung transplant status; Z51.5 Encounter for palliative care; D72.819 Decreased white blood cell count, unspecified; D64.9 Anemia, unspecified; I27.2 Other secondary pulmonary hypertension; Z16.12 Extended spectrum beta lactamase (ESBL) resistance; J44.1 Chronic obstructive pulmonary disease with (acute) exacerbation; K57.90 Diverticulosis of intestine, part unspecified, without perforation or abscess without bleeding; D69.6 Thrombocytopenia, unspecified; E87.5 Hyperkalemia; I12.9 Hypertensive chronic kidney disease with stage 1 through stage 4 chronic kidney disease, or unspecified chronic kidney disease; E11.22 Type 2 diabetes mellitus with diabetic chronic kidney disease; N40.0 Benign prostatic hyperplasia without lower urinary tract symptoms; Z99.81 Dependence on supplemental oxygen; Z87.891 Personal history of nicotine dependence; Z86.19 Personal history of other infectious and parasitic diseases; Z79.899 Other long term (current) drug therapy; Z79.52 Long term (current) use of systemic steroids
CPT/HCPCS: 31624; 36415; 36600; 71010; 71250-TC; 80048; 80053; 80197; 80202-TC; 81000-TC; 82150-TC; 82803-TC; 82962; 83605; 83690-TC; 83880; 84484; 85007; 85025; 85027; 85379; 85384-TC; 85610-TC; 85730-TC; 86480; 86606; 87040-TC; 87070-TC; 87081; 87086; 87101; 87116; 87186-TC; 87230-TC; 88108; 90935; 93005; 93970; 94640; 94660; 94760; 96365; 96367; 96368; 96375; 99285; C1751; J1450; J1644; J1815; J1940; J2001; J2060; J2185; J2250; J2270; J2543; J2930; J3010; J3260; J3370; J3430; J3490; J7030; J7040; J7050; J7060; J7507; J7512